=== PATIENT | male | born 1980 | race Caucasian/White ===

== ENCOUNTER 2016-08-22 08:00 | Outpatient (RCR) | payer BC ==
[2016-08-18 10:10] VITALS: BP 118/72
[2016-08-18 14:35] VITALS: BP 118/72
[2016-08-19] MEDS: VANCOMYCIN 1500 MG/NS 500 ML IVPB IV SCH ×2 (10:20)
[2016-08-19 12:31] VITALS: BP 113/68
[2016-08-20] MEDS: VANCOMYCIN 1500 MG/NS 500 ML IVPB IV SCH ×2 (08:25)
[2016-08-20 10:30] VITALS: BP 117/83
[2016-08-21 08:00] VITALS: BP 109/61
[2016-08-21] MEDS: VANCOMYCIN 1500 MG/NS 500 ML IVPB IV SCH ×2 (08:00)
[~2016-08-22] VITALS: Ht 175.3 cm; Wt 74.8 kg
[~2016-08-22 08:00] MED LIST: CLIN150C17 PO; SODIUM CHLORIDE (ADD-VANTAGE) 250 ML ONE; VANCOMYCIN 1 GM ADD-VANTAGE VIAL IV ONE; VANCOMYCIN 1,750 MG/NS 500 ML IVPB IV NR; VANCOMYCIN 1500 MG/NS 500 ML IVPB IV SCH; VANCOMYCIN 500 MG/NS 100 ML IVPB IV ONE
[2016-08-22] MEDS: VANCOMYCIN 1500 MG/NS 500 ML IVPB IV SCH ×2 (08:10)
[2016-08-22 10:20] VITALS: BP 111/67
== END 2016-11-16 | disposition home or self-care (01) ==
LOC: SDC 08:00
PROVIDERS: ATTEND Surgery
DX: L03.221 Cellulitis of neck (principal)
CPT/HCPCS: 96365; 96366